=== PATIENT | female | born 1960 ===

== ENCOUNTER 2017-11-12 14:27 | Emergency (ER) | payer MEDICAID, OTHER ==
--- NOTE | 2017-11-12 15:15 | ED PDOC ---
Arrival/HPI - General Historian: Patient - History of Present Illness Narrative History of Present Illness (Text): 11/12/17 15:12 56 yo female, no significant pmh, nkda, post menopausal, c/o lt. armpit painful bump x 2 days. Pt. stated that she shaved her arm pit about 2 days ago, been having painful small bumps, no numbness or tingling, no difficulty moving the lt. upper extremity, no palpitation, no rash, no dizziness, no change in vision, no other medical or psychological complaints. <Elmer Merino - Last Filed: 11/12/17 16:03> <Julio Singh - Last Filed: 11/12/17 17:09> - General Time Seen by Provider: 11/12/17 15:12 Past Medical History - Provider Review Nursing Documentation Reviewed: Yes <Elmre Merino - Last Filed: 11/12/17 16:03> Family/Social History - Physician Review Nursing Documentation Reviewed: Yes Family/Social History: Unknown Family HX <lEmer Merino - Last Filed: 11/12/17 16:03> Allergies/Home Meds <Elmer Merino - Last Filed: 11/12/17 16:03> <Julio Singh - Last Filed: 11/12/17 17:09> Allergies/Adverse Reactions: Allergies No Known Allergies Allergy (Verified 11/12/17 15:03) Review of Systems - Physician Review All systems were reviewed & negative as marked: Yes - Review of Systems Constitutional: absent: Fatigue, Fevers Eyes: absent: Vision Changes ENT: absent: Hearing Changes Respiratory: absent: SOB, Cough Cardiovascular: absent: Chest Pain Gastrointestinal: absent: Abdominal Pain, Nausea, Vomiting Musculoskeletal: absent: Arthralgias, Back Pain Skin: Rash, Skin Lesions. absent: Pruritis, Laceration, Abscess, Ulcer, Cellulitis Neurological: absent: Headache, Dizziness Psychiatric: absent: Anxiety, Depression, Suicidal Ideation <Elmer Merino - Last Filed: 11/12/17 16:03> Physical Exam Vital Signs Reviewed: Yes Vital Signs Temp Pulse Resp BP Pulse Ox 11/12/17 15:04 98.0 F 77 18 130/75 100 Temperature: Afebrile Blood Pressure: Normal Pulse: Regular Respiratory Rate: Normal Appearance: Positive for: Well-Appearing, Non-Toxic, Comfortable Pain Distress: Mild Mental Status: Positive for: Alert and Oriented X 3 - Systems Exam Head: Present: Atraumatic, Normocephalic Pupils: Present: PERRL Extroacular Muscles: Present: EOMI Conjunctiva: Present: Normal Mouth: Present: Moist Mucous Membranes Neck: Present: Normal Range of Motion Respiratory/Chest: Present: Clear to Auscultation, Good Air Exchange. No: Respiratory Distress, Accessory Muscle Use Cardiovascular: Present: Regular Rate and Rhythm, Normal S1, S2. No: Murmurs Abdomen: No: Tenderness, Distention, Peritoneal Signs Back: Present: Normal Inspection Upper Extremity: Present: Normal Inspection. No: Cyanosis, Edema Lower Extremity: Present: Normal Inspection. No: Edema Neurological: Present: GCS=15, CN II-XII Intact, Speech Normal Skin: Present: Warm, Dry, Rashes (Lt. axillary region: visible early form of carbuncle noted with no fluctuancy noted, no streaking or ulcers, FROM without limitation, sensation intact, motor 5/5, +radial pulse, capillary refill< 2 seconds, neurovasular intact. ), Normal Color Psychiatric: Present: Alert, Oriented x 3, Normal Insight, Normal Concentration <Elmer Merino - Last Filed: 11/12/17 16:03> Vital Signs Temp Pulse Resp BP Pulse Ox 11/12/17 15:04 98.7 F 77 18 140/98 H 100 <Julio Singh - Last Filed: 11/12/17 17:09> Medical Decision Making ED Course and Treatment: 11/12/17 15:15 -beside sonogram performed by me and noted to have approx. 1cm beneath the skin with 4 individual abscess cavities, will go ahead and I&D Procedure: Incision & Drainage Performed by the emergency provider Indication: lt. axillary abscesses Location: lt. axillary Preparation: The area was prepped and draped in the usual sterile fashion and was cleansed with betadine and normal saline 100cc. Local infiltration of Lidocaine 1% without Epi 1cc was used for anesthesia. Procedure: The most fluctuant portion of the abscesses was incised with a #11 scalpel. Approximately 1 mL of purualnt abscess released from each abscess cavity was obtained. The abscess was packed with 1/4" iododfoam. A dressing was applied by the RN. Post-Procedure: On exam the abscess cavities are not flucutuant and feeling much better. The patient tolerated the procedure well, and there were no complications. Cultured: {NO} 11/12/17 16:04 -Cleocin and motrin ordered. -Discharge home with cleocin, motrin, return to the ER in 2 days for wound check and packing change, follow up with your own pmd and general surgeon within 3 days, return to the Er for any new or worsening sign or symptoms. <Elmer Merino - Last Filed: 11/12/17 16:03> - Medication Orders Current Medication Orders: Discontinued Medications Clindamycin HCl (Cleocin) 300 mg PO STAT STA; Protocol Stop: 11/12/17 16:04 Last Admin: 11/12/17 16:24 Dose: 300 mg Ibuprofen (Motrin Tab) 600 mg PO STAT STA Stop: 11/12/17 16:04 Last Admin: 11/12/17 16:24 Dose: 600 mg MAR Pain/Vitals Document 11/12/17 16:24 SZGeoffrey (Rec: 11/12/17 16:24 Geoffrey [facility]) Pain Reassessment Is This A Pain ReAssessment? No Presence of Pain Presence of Pain Yes Pain Scale Used Protocol: PSCALES Pain Scale Used Numeric Location Intensity 5 Scale Used Numeric <Julio Singh - Last Filed: 11/12/17 17:09> - PA / LINING STRAP CLOSER / Resident Statement LEVON has reviewed & agrees with the documentation as recorded. LEVON has examined the patient and agrees with the treatment plan. - Scribe Statement The provider has reviewed the documentation as recorded by the Javieribtim Mccauley All medical record entries made by the Javieribtim were at my direction and personally dictated by me. I have reviewed the chart and agree that the record accurately reflects my personal performance of the history, physical exam, medical decision making, and the department course for this patient. I have also personally directed, reviewed, and agree with the discharge instructions and disposition. <Elmer Merino - Last Filed: 11/12/17 16:03> - PA / LINING STRAP CLOSER / Resident Statement LEVON has reviewed & agrees with the documentation as recorded. <Julio Singh - Last Filed: 11/12/17 17:09> Disposition/Present on Arrival - Present on Arrival Any Indicators Present on Arrival: No History of DVT/PE: No History of Uncontrolled Diabetes: No Urinary Catheter: No History of Decub. Ulcer: No - Disposition Have Diagnosis and Disposition been Completed?: Yes Disposition Time: 16:08 Patient Plan: Discharge <Elmer Merino - Last Filed: 11/12/17 16:03> <Julio Singh - Last Filed: 11/12/17 17:09> - Disposition Diagnosis: Abscess Disposition: HOME/ ROUTINE Patient Problems: Current Active Problems Problem Status Onset Abscess Acute Condition: GOOD Additional Instructions: -Discharge home with cleocin, motrin, return to the ER in 2 days for wound check and packing change, follow up with your own pmd and general surgeon within 3 days, return to the Er for any new or worsening sign or symptoms. Prescriptions: Clindamycin [Cleocin] 300 mg PO QID #32 cap Ibuprofen [Motrin] 600 mg PO QID PRN #30 tab PRN Reason: Other Referrals: Verna Acuña RN [Primary Care Provider] - Follow up with primary Tk Orr MD [Staff Provider] - Follow up with primary Niles Jensen MD [Staff Provider] - Follow up with primary Forms: WORK NOTE
[2017-11-12 15:22] VITALS: BMI 34.2
[2017-11-12 15:23] VITALS: TEMP 98.7
[2017-11-12 17:15] VITALS: O2SAT 99
[2017-11-12 17:16] VITALS: BP 139/88; PULSE 80; RESP 16
== END 2017-11-12 17:16 | disposition home or self-care (01) ==
LOC: MERGE 14:27 → ED 14:27
DX: L02.412 Cutaneous abscess of left axilla (principal)

== ENCOUNTER 2017-11-14 15:58 | Emergency (ER) | payer MEDICAID, OTHER ==
[2017-11-14 15:58] VITALS: BMI 34.2
[2017-11-14 16:20] VITALS: BP 122/85; PULSE 77; RESP 16; TEMP 98.6; O2SAT 97
--- NOTE | 2017-11-14 16:50 | ED PDOC ---
Arrival/HPI - General Chief Complaint: Wound Check Time Seen by Provider: 11/14/17 16:25 Historian: Patient - History of Present Illness Narrative History of Present Illness (Text): 11/14/17 16:46 56 year old female, with no significant past medical history, presents to the Emergency department for evaluation of left axilla wound and package removal today. Patient informs having an abscess drainage to her left axilla on 11/12/17 and was subsequently asked to present to the Emergency department after 2 days for evaluation. Patient currently denies any somatic complaints. Patient denies any fever, chills, nausea, vomiting, diarrhea, abdominal pain, chest pain, shortness of breath, neck pain, back pain, headache, dizziness or any other complaints. Time/Duration: < week Symptom Onset: Gradual Symptom Course: Improving Activities at Onset: Light Context: Home Past Medical History - Provider Review Nursing Documentation Reviewed: Yes - Cardiac Hx Cardiac Disorders: Yes - Pulmonary Hx Respiratory Disorders: No - Neurological Hx Neurological Disorder: No - HEENT Hx HEENT Disorder: No - Renal Hx Renal Disorder: No - Endocrine/Metabolic Hx Endocrine Disorders: Yes Hx Hyperthyroidism: Yes - Hematological/Oncological Hx Blood Disorders: No - Integumentary Hx Dermatological Disorder: Yes Other/Comment: ABSCESS - Musculoskeletal/Rheumatological Hx Musculoskeletal Disorders: No - Gastrointestinal Hx Gastrointestinal Disorders: No - Genitourinary/Gynecological Hx Genitourinary Disorders: No - Psychiatric Hx Psychophysiologic Disorder: No Hx Substance Use: No - Surgical History Hx Section: Yes Hx Cholecystectomy: Yes Hx Tubal Ligation: Yes Family/Social History - Physician Review Nursing Documentation Reviewed: Yes Family/Social History: No Known Family HX Smoking Status: Never Smoked Hx Alcohol Use: Yes Hx Substance Use: No Allergies/Home Meds Allergies/Adverse Reactions: Allergies No Known Allergies Allergy (Verified 11/14/17 16:15) Review of Systems - Physician Review All systems were reviewed & negative as marked: Yes - Review of Systems Constitutional: absent: Fevers Respiratory: absent: SOB Cardiovascular: absent: Chest Pain Gastrointestinal: absent: Abdominal Pain, Diarrhea, Nausea, Vomiting Musculoskeletal: absent: Back Pain, Neck Pain Skin: Abscess (left axilla wound check s/p abscess drainage) Neurological: absent: Headache, Dizziness Physical Exam Vital Signs Reviewed: Yes Vital Signs Temp Pulse Resp BP Pulse Ox 11/14/17 16:15 98.6 F 77 16 122/85 97 Temperature: Afebrile Blood Pressure: Normal Pulse: Regular Respiratory Rate: Normal Appearance: Positive for: Well-Appearing, Non-Toxic, Comfortable Pain Distress: None Mental Status: Positive for: Alert and Oriented X 3 - Systems Exam Head: Present: Atraumatic, Normocephalic Pupils: Present: PERRL Extroacular Muscles: Present: EOMI Conjunctiva: Present: Normal Mouth: Present: Moist Mucous Membranes Neck: Present: Normal Range of Motion Respiratory/Chest: Present: Clear to Auscultation, Good Air Exchange. No: Respiratory Distress, Accessory Muscle Use Cardiovascular: Present: Regular Rate and Rhythm, Normal S1, S2. No: Murmurs Abdomen: No: Tenderness, Distention, Peritoneal Signs Back: Present: Normal Inspection Upper Extremity: Present: Other (irrigated left axillary abscess. No surrounding erythema noted.). No: Cyanosis, Edema Lower Extremity: Present: Normal Inspection. No: Edema Neurological: Present: GCS=15, CN II-XII Intact, Speech Normal Skin: Present: Warm, Dry, Normal Color. No: Rashes Psychiatric: Present: Alert, Oriented x 3, Normal Insight, Normal Concentration Medical Decision Making ED Course and Treatment: 11/14/17 16:45 Impression: 56 year old female presents to the Emergency department for left axilla wound check s/p abscess drainage. Plan: -- Reassess and disposition Prior Visits: Notes and results from previous visits were reviewed. Progress Notes: 11/14/17 16:45 Left axilla abscess was irrigated. No surrounding erythema noted. - Scribe Statement The provider has reviewed the documentation as recorded by the Scribe Camilla Spencer. Provider Scribe Attestation: All medical record entries made by the Scribe were at my direction and personally dictated by me. I have reviewed the chart and agree that the record accurately reflects my personal performance of the history, physical exam, medical decision making, and the department course for this patient. I have also personally directed, reviewed, and agree with the discharge instructions and disposition. Disposition/Present on Arrival - Present on Arrival History of DVT/PE: No History of Uncontrolled Diabetes: No Urinary Catheter: No History of Decub. Ulcer: No History Surgical Site Infection Following: None - Disposition Diagnosis: Abscess packing removal Disposition: HOME/ ROUTINE Patient Problems: Current Active Problems Problem Status Onset Abscess packing removal Acute Condition: STABLE Discharge Instructions (ExitCare): Abscess Incision and Drainage (DC) Additional Instructions: follow up with your doctor/clinic. return to er with worsening symptoms or c oncerns. Referrals: [facility] [Outside] - Follow up with primary [facility] [Outside] - Follow up with primary Forms: [employer] (Turkish)
== END 2017-11-14 17:00 | disposition home or self-care (01) ==
LOC: ED 15:58
DX: Z48.00 Encounter for change or removal of nonsurgical wound dressing (principal)